=== PATIENT | female | born 1995 | race Caucasian/White ===

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

== ENCOUNTER 2017-01-04 15:06 | Emergency (ER) | payer OTHER ==
[2017-01-04 17:21] LABS: HCG URINE POSITIVE (NEGATIVE)
[2017-01-04 17:53] LABS: APPEARANCE HAZY (CLEAR); BILIRUBIN NEGATIVE (NEGATIVE); COLOR YELLOW (YELLOW); GLUCOSE NEGATIVE (NEGATIVE); KETONE NEGATIVE (NEGATIVE); LEUKOCYTE ESTERASE TRACE (NEGATIVE); NITRITE NEGATIVE (NEGATIVE); PROTEIN NEGATIVE (NEGATIVE); UROBILINOGEN NORMAL (NORMAL)
[2017-01-04 17:55] LABS: BACTERIA MODERATE /hpf (NONE SEEN); EPITHELIAL CELLS OCC /hpf (0-5); RED CELLS - URINE OCC /hpf (0-5); WHITE CELLS - URINE 0-5 /hpf (0-5)
== END 2017-01-04 18:27 | disposition home or self-care (01) ==
LOC: D.ER 15:06
PROVIDERS: Emergency Medicine; Nurse Practitioner Acute Care
DX: O23.41 Unspecified infection of urinary tract in pregnancy, first trimester (principal); N39.0 Urinary tract infection, site not specified

== ENCOUNTER 2017-01-16 15:50 | Emergency (ER) | payer OTHER ==
[2017-01-16 16:35] LABS: APPEARANCE CLEAR (CLEAR); BILIRUBIN NEGATIVE (NEGATIVE); COLOR YELLOW (YELLOW); GLUCOSE NEGATIVE (NEGATIVE); KETONE SMALL mg/dL (NEGATIVE); LEUKOCYTE ESTERASE NEGATIVE (NEGATIVE); NITRITE NEGATIVE (NEGATIVE); PROTEIN NEGATIVE (NEGATIVE); SPECIFIC GRAVITY 1.015 (1.005-1.020); UROBILINOGEN NORMAL (NORMAL)
[2017-01-16 16:48] LABS: BASOPHILS 0.4 % (0-2); EOSINOPHILS 0.4 % (0-7); HEMATOCRIT 34.5 % (36.0-48.0); HEMOGLOBIN 11.7 g/dL (12-16); IMMATURE GRANULOCYTES 0.4 % (0-5); LYMPHOCYTES 22.3 % (15-50); MCH 29.1 pg (26.0-34.0); MCHC 33.9 g/dL (31.0-37.0); MCV 85.8 fL (80.0-100.0); MEAN PLATELET VOLUME 11.4 fL (7.4-10.4); MONOCYTES 7.9 % (2-11); NEUTROPHILS 68.6 % (40-80); RBC 4.02 10x6/uL (4.00-5.40); WBC 7.2 10x3/uL (4.8-10.8)
[2017-01-16 16:56] LABS: PLATELET COUNT 187 10x3/uL (130-400)
[2017-01-16 16:57] LABS: ALBUMIN 3.6 g/dL (3.4-5.0); ALKALINE PHOSPHATASE 44 U/L (46-116); ALT (SGPT) 18 U/L (10-68); BILIRUBIN - TOTAL 0.35 mg/dL (0.2-1.3); CALC OSMOLALITY 270 mosm/kg (275-300); CALCIUM 9.2 mg/dL (8.5-10.1); CARBON DIOXIDE 23.7 mmol/L (21.0-32.0); CHLORIDE - SERUM 104 mmol/L (98-107); CREATININE - SERUM 0.8 mg/dL (0.6-1.3); GLUCOSE 92 mg/dL (74-106); POTASSIUM - SERUM 3.6 mmol/L (3.5-5.1); SODIUM 136 mmol/L (136-145); UREA NITROGEN 10 mg/dL (7-18); eGFR NON AFRICAN AMERICAN > 90 mL/min (90-120)
[2017-01-16 17:21] LABS: HCG - QUANTITATIVE (MATERNAL) 37998 mIU/mL; LIPASE 259 U/L (73-393)
== END 2017-01-16 18:02 | disposition home or self-care (01) ==
LOC: D.ER 15:50
PROVIDERS: Emergency Medicine
DX: O21.9 Vomiting of pregnancy, unspecified (principal); Z3A.08 8 weeks gestation of pregnancy; O20.0 Threatened abortion

== ENCOUNTER 2017-01-22 21:19 | Emergency (ER) | payer OTHER | END 2017-01-22 22:34 | disposition home or self-care (01) | LOC: D.ER 21:19 | DX: T78.40XA Allergy, unspecified, initial encounter (principal); X58.XXXA Exposure to other specified factors, initial encounter ==

== ENCOUNTER 2017-02-15 15:38 | Emergency (ER) | payer OTHER | END 2017-02-15 16:21 | disposition left against medical advice (07) | LOC: D.ER 15:38 | DX: Z02.9 Encounter for administrative examinations, unspecified (principal) ==

== ENCOUNTER 2017-02-16 22:44 | Emergency (ER) | payer OTHER ==
[2017-02-16 23:41] LABS: HEMATOCRIT 32.5 % (36.0-48.0); HEMOGLOBIN 11.3 g/dL (12-16); LYMPHOCYTES 21.8 % (15-50); MCH 29.6 pg (26.0-34.0); MCHC 34.8 g/dL (31.0-37.0); MCV 85.1 fL (80.0-100.0); MEAN PLATELET VOLUME 10.5 fL (7.4-10.4); RBC 3.82 10x6/uL (4.00-5.40); RDW 13.6 % (11.5-14.5); WBC 8.7 10x3/uL (4.8-10.8)
[2017-02-16 23:43] LABS: PLATELET COUNT 146 10x3/uL (130-400)
[2017-02-16 23:53] LABS: ALBUMIN 3.1 g/dL (3.4-5.0); ALKALINE PHOSPHATASE 36 U/L (46-116); ALT (SGPT) 12 U/L (10-68); BILIRUBIN - TOTAL 0.25 mg/dL (0.2-1.3); CALC OSMOLALITY 276 mosm/kg (275-300); CALCIUM 8.7 mg/dL (8.5-10.1); CARBON DIOXIDE 22.6 mmol/L (21.0-32.0); CHLORIDE - SERUM 104 mmol/L (98-107); CREATININE - SERUM 0.6 mg/dL (0.6-1.3); GLUCOSE 125 mg/dL (74-106); POTASSIUM - SERUM 3.2 mmol/L (3.5-5.1); PROTEIN - SERUM 6.6 g/dL (6.4-8.2); SODIUM 139 mmol/L (136-145); UREA NITROGEN 8 mg/dL (7-18); eGFR NON AFRICAN AMERICAN > 90 mL/min (90-120)
[2017-02-17 00:08] LABS: APPEARANCE HAZY (CLEAR); BILIRUBIN NEGATIVE (NEGATIVE); COLOR YELLOW (YELLOW); GLUCOSE 50 mg/dL (NEGATIVE); KETONE MODERATE mg/dL (NEGATIVE); LEUKOCYTE ESTERASE 1+ (NEGATIVE); NITRITE NEGATIVE (NEGATIVE); PROTEIN NEGATIVE (NEGATIVE); SPECIFIC GRAVITY 1.025 (1.005-1.020); UROBILINOGEN NORMAL (NORMAL)
[2017-02-17 00:09] LABS: BACTERIA MODERATE /hpf (NONE SEEN); EPITHELIAL CELLS 0-5 /hpf (0-5); MUCUS <1+ /lpf (NONE SEEN); RED CELLS - URINE 0-5 /hpf (0-5); WHITE CELLS - URINE 0-5 /hpf (0-5)
[2017-02-17 00:24] LABS: HCG - QUANTITATIVE (MATERNAL) 130304 mIU/mL
[2017-02-17 00:56] LABS: HCG SERUM POSITIVE (NEGATIVE)
== END 2017-02-17 01:44 | disposition left against medical advice (07) ==
LOC: D.ER 22:44
PROVIDERS: Emergency Medicine
DX: N93.9 Abnormal uterine and vaginal bleeding, unspecified (principal)

== ENCOUNTER 2017-05-23 20:21 | Outpatient (CLI) | payer MEDICAID ==
[2017-05-23 20:59] LABS: APPEARANCE CLEAR (CLEAR); COLOR YELLOW (YELLOW); GLUCOSE NEGATIVE (NEGATIVE); KETONE NEGATIVE (NEGATIVE); NITRITE NEGATIVE (NEGATIVE); PROTEIN NEGATIVE (NEGATIVE); SPECIFIC GRAVITY 1.015 (1.005-1.020)
[2017-05-23 21:00] LABS: BILIRUBIN NEGATIVE (NEGATIVE); UROBILINOGEN NORMAL (NORMAL)
[2017-08-01] MEDS ORDERED: CYCLOBENZAPRINE10 MG (01:35)
[2017-08-01] MEDS ORDERED: [UNRECOGNIZED DRUG - OTHER] (01:37)
[2017-08-01] MEDS ORDERED: MED FOR ITCHING ×2 (01:38→01:39)
[2017-08-29 21:24] VITALS: BMI 33.3
== END 2017-05-23 22:37 | disposition home or self-care (01) ==
LOC: D.LDO 20:21
PROVIDERS: Obstetrics & Gynecology
DX: O26.892 Other specified pregnancy related conditions, second trimester (principal); Z3A.25 25 weeks gestation of pregnancy; R10.9 Unspecified abdominal pain; M54.5 Low back pain; N89.8 Other specified noninflammatory disorders of vagina

== ENCOUNTER 2017-06-20 19:52 | Outpatient (CLI) | payer MEDICAID ==
[2017-06-20 20:57] LABS: APPEARANCE HAZY (CLEAR); BILIRUBIN NEGATIVE (NEGATIVE); COLOR YELLOW (YELLOW); GLUCOSE NEGATIVE (NEGATIVE); KETONE NEGATIVE (NEGATIVE); NITRITE NEGATIVE (NEGATIVE); PH 6.5 (5.0-6.0); PROTEIN NEGATIVE (NEGATIVE); SPECIFIC GRAVITY 1.015 (1.005-1.020); UROBILINOGEN NORMAL (NORMAL)
[2017-06-20 21:01] LABS: AMORPHOUS SEDIMENT <1+ /lpf (NONE SEEN); BACTERIA MANY /hpf (NONE SEEN); GRANULAR CAST 0-5 /lpf (NONE SEEN); HYALINE CAST OCC /lpf (NONE SEEN); RED CELLS - URINE 0-5 /hpf (0-5); WHITE CELLS - URINE 25-50 /hpf (0-5)
[2017-08-01] MEDS ORDERED: CYCLOBENZAPRINE10 MG (01:35)
[2017-08-01] MEDS ORDERED: [UNRECOGNIZED DRUG - OTHER] (01:37)
[2017-08-01] MEDS ORDERED: MED FOR ITCHING ×2 (01:38→01:39)
[2017-08-29 21:24] VITALS: BMI 33.3
== END 2017-06-20 22:37 | disposition home or self-care (01) ==
LOC: D.LDO 19:52
PROVIDERS: Obstetrics & Gynecology
DX: O26.893 Other specified pregnancy related conditions, third trimester (principal); Z3A.29 29 weeks gestation of pregnancy; R10.9 Unspecified abdominal pain; M54.9 Dorsalgia, unspecified

== ENCOUNTER → 2017-07-28 17:42 | Outpatient (CLI) | payer MEDICAID ==
[~2017-07-28 17:42] MED LIST: CYCLOBENZAPRINE10 MG; HYDROXYZINE HCL10 MG PO; IBUPROFEN800 MG PO; MED FOR ITCHING; [UNRECOGNIZED DRUG - OTHER]
[2017-08-29 21:24] VITALS: BMI 33.3
== END | disposition home or self-care (01) ==
LOC: D.LDO 17:42
DX: O36.8130 Decreased fetal movements, third trimester, not applicable or unspecified (principal); Z3A.34 34 weeks gestation of pregnancy

== ENCOUNTER → 2017-08-01 01:15 | Outpatient (CLI) | payer MEDICAID ==
[2017-08-01 01:57] LABS: APPEARANCE CLEAR (CLEAR); COLOR YELLOW (YELLOW)
[2017-08-01 01:58] LABS: BILIRUBIN NEGATIVE (NEGATIVE); GLUCOSE NEGATIVE (NEGATIVE); KETONE NEGATIVE (NEGATIVE); NITRITE NEGATIVE (NEGATIVE); PROTEIN NEGATIVE (NEGATIVE); UROBILINOGEN NORMAL (NORMAL)
[2017-08-01 01:59] LABS: RED CELLS - URINE 0-5 /hpf (0-5); WHITE CELLS - URINE 0-5 /hpf (0-5)
[2017-08-29 21:24] VITALS: BMI 33.3
== END | disposition home or self-care (01) ==
LOC: D.LDO 01:15
PROVIDERS: Obstetrics & Gynecology
DX: O26.893 Other specified pregnancy related conditions, third trimester (principal); Z3A.35 35 weeks gestation of pregnancy; R10.9 Unspecified abdominal pain; M54.9 Dorsalgia, unspecified; R22.43 Localized swelling, mass and lump, lower limb, bilateral

== ENCOUNTER 2017-08-17 23:51 | Outpatient (CLI) | payer MEDICAID ==
[~2017-08-17 23:51] MED LIST changes: -HYDROXYZINE HCL10 MG PO; -IBUPROFEN800 MG PO
[2017-08-18 00:16] LABS: APPEARANCE CLOUDY (CLEAR); BILIRUBIN NEGATIVE (NEGATIVE); COLOR YELLOW (YELLOW); GLUCOSE 50 mg/dL (NEGATIVE); KETONE NEGATIVE (NEGATIVE); NITRITE NEGATIVE (NEGATIVE); PROTEIN 1+ mg/dL (NEGATIVE); UROBILINOGEN NORMAL (NORMAL)
[2017-08-18 00:19] LABS: BACTERIA MANY /hpf (NONE SEEN); EPITHELIAL CELLS 0-5 /hpf (0-5)
[2017-08-29 21:24] VITALS: BMI 33.3
== END 2017-08-18 00:46 | disposition home or self-care (01) ==
LOC: D.LD 23:51 → D.LDO 23:51
PROVIDERS: Obstetrics & Gynecology
DX: O26.893 Other specified pregnancy related conditions, third trimester (principal); Z3A.37 37 weeks gestation of pregnancy; R10.9 Unspecified abdominal pain; M54.5 Low back pain

== ENCOUNTER 2017-08-29 10:28 | Inpatient (IN) | payer OTHER ==
[~2017-08-29] VITALS: Ht 160 cm; Wt 85.3 kg
--- NOTE | ~2017-08-29 | DS ---
PATIENT:ALIYAH POOL :89 MEDICAL RECORD: [id number] DISCHARGE SUMMARY ADMISSION DATE: 08/29/17 DISCHARGE DATE: DATE OF ADMISSION: 08/29/2017. DATE OF DISCHARGE: 09/01/2017. ADMISSION DIAGNOSIS: at term. DISCHARGE DIAGNOSES: Mother delivered at term. PROCEDURE PERFORMED: Vaginal delivery. DISCHARGING PHYSICIAN: Nikki De Luna MD HISTORY OF PRESENT ILLNESS: See the H&P in the chart. SUMMARY OF HOSPITALIZATION: The patient was admitted to the hospital for induction of labor. At the time of delivery, she had vaginal laceration, which was repaired. The patient received 2 units of blood and hematocrit. Her hemoglobin and hematocrit is 9.4 and 29.8. The patient is afebrile with unremarkable vital signs. The patient is discharged home on 800 mg ibuprofen to be used every 8 hours as needed. The patient will follow up in 6 weeks. Standard precautions have been reviewed. TRANSINT:[id number] Voice Confirmation ID: [id number] DOCUMENT ID: [id number] NIKKI DE LUNA MD CC: [id number] DICTATION DATE: 09/01/17 07 DESKTOP SUPPORT TECHNICIAN: 09/01/17 1401 ADM IN [place] [id number] [place] [address]
[2017-08-29] MEDS ORDERED: HYDROXYZINE HCL10 MG PO (21:23)
[2017-08-29 21:24] VITALS: BP 132/81; Ht 160 cm; Wt 85.3 kg
[2017-08-29 21:29] LABS: HEMATOCRIT 29.5 % (36.0-48.0); HEMOGLOBIN 9.3 g/dL (12-16); MCHC 31.5 g/dL (31.0-37.0); MCV 85.8 fL (80.0-100.0); MEAN PLATELET VOLUME 11.7 fL (7.4-10.4); RBC 3.44 10x6/uL (4.00-5.40); RDW 14.6 % (11.5-14.5); WBC 11.6 10x3/uL (4.8-10.8)
[2017-08-29 22:06] LABS: APPEARANCE CLEAR (CLEAR); BACTERIA FEW /hpf (NONE SEEN); BILIRUBIN NEGATIVE (NEGATIVE); COLOR YELLOW (YELLOW); GLUCOSE NEGATIVE (NEGATIVE); KETONE NEGATIVE (NEGATIVE); NITRITE NEGATIVE (NEGATIVE); PROTEIN NEGATIVE (NEGATIVE); SPECIFIC GRAVITY 1.015 (1.005-1.020); UROBILINOGEN NORMAL (NORMAL); WHITE CELLS - URINE 0-5 /hpf (0-5)
[2017-08-30 23:45] VITALS: BP 105/61
[2017-08-31] VITALS (16 sets, daily range): BP systolic 107–133; BP diastolic 56–83
[2017-08-31 06:15] LABS: RAPID PLASMA REAGIN Non Reactive (Non Reactive)
[2017-08-31 06:44] LABS: BASOPHILS 0.1 % (0-2); EOSINOPHILS 0.5 % (0-7); HEMATOCRIT 20.9 % (36.0-48.0); IMMATURE GRANULOCYTES 0.9 % (0-5); LYMPHOCYTES 14.5 % (15-50); MCH 27.3 pg (26.0-34.0); MCHC 31.6 g/dL (31.0-37.0); MCV 86.4 fL (80.0-100.0); MEAN PLATELET VOLUME 11.1 fL (7.4-10.4); MONOCYTES 11.1 % (2-11); NEUTROPHILS 72.9 % (40-80); RDW 14.9 % (11.5-14.5); WBC 10.2 10x3/uL (4.8-10.8)
[2017-08-31 06:45] LABS: RBC 2.42 10x6/uL (4.00-5.40)
[2017-08-31 06:46] LABS: HEMOGLOBIN 6.6 g/dL (12-16); PLATELET COUNT 134 10x3/uL (130-400)
[2017-08-31 17:04] LABS: HEMATOCRIT 29.8 % (36.0-48.0); HEMOGLOBIN 9.4 g/dL (12-16)
[2017-09-01 07:40] VITALS: BP 125/78
[2017-09-01] MEDS ORDERED: IBUPROFEN800 MG PO (07:51)
== END 2017-09-01 13:05 | disposition home or self-care (01) | DRG 775 ==
LOC: D.LD 10:28
PROVIDERS: Obstetrics & Gynecology
PROC: 10E0XZZ Delivery of Products of Conception, External Approach (ICD-10-PCS; principal; 2017-08-30)
PROC: 0HQ9XZZ Repair Perineum Skin, External Approach (ICD-10-PCS; 2017-08-30)
DX: O99.344 Other mental disorders complicating childbirth (principal); F41.8 Other specified anxiety disorders; Z3A.39 39 weeks gestation of pregnancy; Z37.0 Single live birth; O70.9 Perineal laceration during delivery, unspecified